=== PATIENT | female | born 1980 | race Caucasian/White ===

== ENCOUNTER 2017-11-14 15:36 | Emergency (ER) | payer OTHER ==
--- NOTE | 2017-11-14 15:55 | PDOC ---
History of Present Illness - History of Present Illness Initial Comments: 11/14/17 16:05 Patient is a 37 year old female, with a significant PMHx of Type 1 diabetes, who presents to the ER s/p dog bite to both hands. Patient states she was handling a clients dog and trying to get the dog back into bed when it bite through her gloves and 2 layers of a blanket. Patient sustained cuts to both hands as well as scratches to the dorsal side of her hand. The deeper cuts are located on the lateral distal portion of her her right fourth and fifth finger. Patient denies experiencing any current numbness or tingling in her hands. Patient states the dog is a poodle mix and weighs approximately 20 lbs. Last blood sugar reading was 119 at 2:36 pm. Patient is up-to-date with her rabies and tetanus shots. She received them both last November. <Lucia Villanueva - Last Filed: 11/14/17 16:05> <Rickey Moyer - Last Filed: 11/14/17 17:16> - General Chief Complaint: Bite Stated Complaint: DOG BITE Time Seen by Provider: 11/14/17 15:51 Past History <Lucia Villanueva - Last Filed: 11/14/17 16:05> - Past Medical History Diabetes: Yes (TYPE I) - Immunization History TDAP Vaccination: Yes (12/12/15) Immunization Up to Date: Yes - Suicide/Smoking/Psychosocial Hx Smoking History: Former smoker Have you smoked in the past 12 months: No If you are a former smoker, when did you quit?: 2009 Hx Alcohol Use: Yes (social) Drug/Substance Use Hx: No Substance Use Type: None <Rickey Moyer - Last Filed: 11/14/17 17:16> - Past Medical History Allergies/Adverse Reactions: Allergies Allergy/AdvReac Type Severity Reaction Status Date / Time lactose AdvReac Mild Verified 11/14/17 16:24 Home Medications: Ambulatory Orders Insulin (Novolog) [Novolog -] 24 units SQ ASDIR PRN 12/14/15 Venlafaxine HCl ER [Effexor Xr -] 150 mg PO DAILY 12/14/15 Amox-Tr/K Cl [Augmentin 875-125mg Tablet -] 1 tab PO BID #14 tablet 11/14/17 Review of Systems - Review of Systems Comments:: 11/14/17 16:05 CONSTITUTIONAL: Absent: fever, no chills, no fatigue EYES: Absent: visual changes ENT: Absent: ear pain, no sore throat CARDIOVASCULAR: Absent: chest pain, no palpitations RESPIRATORY: Absent: cough, no SOB GI: Absent: abdominal pain, no nausea, no vomiting, no constipation, no diarrhea GENITOURINARY: Absent: dysuria, no frequency, no hematuria MUSCULOSKELETAL: Absent: back pain, no arthralgia, no myalgia SKIN: Present: scratches and lacerations to both hands. Deeper cuts on fourth and fifth fingers on right hand. Absent: rash <Lucia Villanueva - Last Filed: 11/14/17 16:05> Medical Decision Making - Medical Decision Making 11/14/17 16:41 Declined test. States there is no chance of . Physical exam: Alert oriented no acute distress cooperative Afebrile, vital signs normal Examination confined to the hands, which reveal multiple puncture wounds secondary to dog bites from a friend's dog, whom she was trying to move to his doggy bed. No deep lacerations appear to be present, and flexion/extension of PIP and DIP joints in all 10 digits seem to be intact and strong against resistance. No demonstrable sensory deficits to the fingers, but there is a complaint of "burning" of the distal phalanx, bilaterally, right fifth finger. There is an abrasion/laceration at the base of the fifth digit laterally on this hand. 11/14/17 16:58 X-ray is negative for foreign body Wounds were thoroughly scrubbed with normal saline, irrigated, and dressed with bacitracin. Augmentin was begun. Instructed to follow-up with plastic surgeon/ hand surgeon in 3-5 days, sooner if there is evidence of infection developing <Rickey Moyer - Last Filed: 11/14/17 17:16> *DC/Admit/Observation/Transfer - Attestations Scribe Attestion: 11/14/17 16:07 Documentation prepared by Lucia Villanueva, acting as medical secretary receptionist for Rickey Castañeda MD. <Lucia Villanueva - Last Filed: 11/14/17 16:05> - Discharge Dispostion Admit: No <Rickey Moyer - Last Filed: 11/14/17 17:16> Diagnosis at time of Disposition: Dog bite of hand Qualifiers: Encounter type: initial encounter Laterality: right Qualified Code(s): S61.451A - Open bite of right hand, initial encounter - Discharge Dispostion Disposition: HOME Condition at time of disposition: Improved - Prescriptions Prescriptions: Amox-Tr/K Cl [Augmentin 875-125mg Tablet -] 1 tab PO BID #14 tablet - Referrals Referrals: Gal Montesinos MD [Staff Physician] - 3 days - Patient Instructions Printed Discharge Instructions: How to Care for a Domestic Animal Bite Additional Instructions: Rest and elevate. Wound care as described. Use the hand as little as possible for the next 2-3 days to minimize the risk of infection If there is any persistent numbness tingling or difficulty bending any of the fingers, you should be rechecked by a hand specialist. You are referred to Dr. Montesinos for this purpose. Also if you develop infection despite the antibiotic treatment, he should see Dr. Montesinos immediately, because hand infections can be devastating if not controlled immediately.
[2017-11-14 16:24] VITALS: BP 127/81; PULSE 76; TEMP 98.1; BMI 26.2
[2017-11-14] MEDS ORDERED: AMOX TR/POT CLAV 875MG/125MG TABLETS (FP) PO ONE (16:57)
[2017-11-14] MEDS ORDERED: AMOX TR/POT CLAV 875MG/125MG TABLETS (FP) ONE (17:07)
== END 2017-11-14 17:18 | disposition home or self-care (01) ==
LOC: FER 15:36
DX: S61.451A Open bite of right hand, initial encounter (principal); E10.9 Type 1 diabetes mellitus without complications; Z87.891 Personal history of nicotine dependence; T14.8XXA Other injury of unspecified body region, initial encounter; W54.0XXA Bitten by dog, initial encounter; Y93.9 Activity, unspecified; Y92.9 Unspecified place or not applicable
CPT/HCPCS: 73130-TC-LT; 73130-TC-RT; 99282-25

== ENCOUNTER 2018-01-15 20:40 | Emergency (ER) | payer OTHER ==
--- NOTE | 2018-01-15 20:55 | PDOC ---
History of Present Illness - General History Source: Patient Exam Limitations: No Limitations - History of Present Illness Initial Comments: 01/15/18 21:05 The patient is a 37 year old female with a significant PMH of type I diabetes who presents to the emergency department with a left arm abrasion and laceration s/p dog bite earlier today. The patient reports being at the dog park and being bitten by another persons dog on her left forearm. She describes her cuts as a superficial cut on the back side of her left arm and a deeper cut on her forearm. She denies any active bleeding. She reports the dog that bit her was fully vaccinated as it is a requirement to play in the park. She reports her Tetanus is up to date. PAST MEDICAL HISTORY: Type I diabetes. PAST SURGICAL HISTORY: no significant history FAMILY HISTORY: no pertinent history SOCIAL HISTORY: Pt lives with family and is employed. MEDICATIONS: reviewed ALLERGIES: Lactose. Review of Systems General: No fevers or chills, no weakness, no weight loss HEENT: No change in vision. No sore throat,. No ear pain CardioVascular: No chest pain or shortness of breath Respiratory:No cough, or wheezing. Gastrointestinal: no nausea, vomitting, diarrhea or constipation, No rectal bleeding Genitourinary: No dysuria, hematuria, or frequency Musculoskeletal: No joint or muscle pain or swelling Neurologic: No headache, vertigo, dizziness or loss of consciousness Psychiatric: nor depression Skin: (+) Superficial cuts to the dorsal and palmar side of forearm. No rashes or easy bruising Endocrine: no increased thirst or abnormal weight change Allergic: no skin or latex allergy All other systems reviewed and normal Exam: GENERAL: The patient is awake, alert, and fully oriented, in no acute distress. HEAD: Normal with no signs of trauma. EYES: Pupils equal, round and reactive to light, extraocular movements intact, sclera anicteric, conjunctiva clear. EXTREMITIES: Normal range of motion, no edema. NEUROLOGICAL: Normal speech, normal gait. PSYCH: Normal mood, normal affect. SKIN: (+) 1 cm superficial abrasion to dorsal side of left arm. (+) 1 cm superficial laceration to the palmar side of the left forearm. <Wade Maldonado - Last Filed: 01/15/18 21:05> - General History Source: Patient Exam Limitations: No Limitations - History of Present Illness Initial Comments: A portion of this note was documented by scribe services under my direction. I have reviewed the details of the note, within reason, and agree with the documentation. The case summary and management plan written by me. Assessment and plan: This is a 37-year-old female who was bit by a dog prior to coming in. The dog was at a dog park and his immunizations are all up-to-date. Patient has a superficial abrasion on the back of her forearm as well as a superficial laceration on the palmar side of the forearm. Both were cleaned and antibiotic ointment and dressing was applied. Patient's tetanus is up-to-date. Patient was started on Augmentin to prevent infection. Patient discharged home and does have a primary care doctor she can follow-up with. 01/16/18 00:09 <Judson Dugan I - Last Filed: 01/16/18 00:10> - General Chief Complaint: Bite Stated Complaint: LFA DOG BITE Time Seen by Provider: 01/15/18 20:45 Past History <Wade Maldonado - Last Filed: 01/15/18 21:05> - Past Medical History COPD: No Diabetes: Yes (TYPE I) Psychiatric Problems: Yes (DEPRESSION) - Immunization History TDAP Vaccination: Yes (12/12/15) Immunization Up to Date: Yes - Suicide/Smoking/Psychosocial Hx Smoking History: Former smoker Have you smoked in the past 12 months: No If you are a former smoker, when did you quit?: 2009 Hx Alcohol Use: Yes (social) Drug/Substance Use Hx: No Substance Use Type: None <Judson Dugan I - Last Filed: 01/16/18 00:10> - Past Medical History Allergies/Adverse Reactions: Allergies Allergy/AdvReac Type Severity Reaction Status Date / Time lactose AdvReac Mild Verified 01/15/18 20:51 Home Medications: Ambulatory Orders Insulin (Novolog) [Novolog -] 24 units SQ ASDIR PRN 12/14/15 Venlafaxine HCl ER [Effexor Xr -] 150 mg PO DAILY 12/14/15 Amoxicillin/Potassium Clav [Augmentin 875-125 Tablet] 1 each PO BID #14 tablet 01/15/18 Cetirizine HCl [Zyrtec -] 10 mg PO DAILY 01/15/18 *Physical Exam - Vital Signs Last Vital Signs Temp Pulse Resp BP Pulse Ox 98.4 F 74 18 124/89 99 01/15/18 20:40 01/15/18 20:40 01/15/18 20:40 01/15/18 20:40 01/15/18 20:40 <Wade Maldonado - Last Filed: 01/15/18 21:05> *DC/Admit/Observation/Transfer - Attestations Scribe Attestion: 01/15/18 21:06 Documentation prepared by Wade Maldonado, acting as district medical examiner for Judson Dugan MD. <Wade Maldonado - Last Filed: 01/15/18 21:05> - Discharge Dispostion Admit: No <Judson Dugan I - Last Filed: 01/16/18 00:10> Diagnosis at time of Disposition: Dog bite of left forearm - Discharge Dispostion Disposition: HOME Condition at time of disposition: Stable - Prescriptions Prescriptions: Amoxicillin/Potassium Clav [Augmentin 875-125 Tablet] 1 each PO BID #14 tablet - Patient Instructions Printed Discharge Instructions: DI for Animal Bites Additional Instructions: Clean the laceration once a day reapply some antibiotic ointment and a dressing until the laceration has scabbed in. Take Augmentin one tablet twice a day with food don't take on an empty stomach. Return to the emergency department immediately with ANY new, persistent or worsening symptoms. Continue any medications as previously prescribed by your physician. You should follow up with your primary doctor as soon as possible regarding today's emergency department visit. . Please make sure your doctor reviews the results of your emergency evaluation. Thank you for coming to the Emergency Department today for your care. It was a pleasure to see you today. Please note that your evaluation is INCOMPLETE until you follow-up with your doctor.
[2018-01-15 20:57] VITALS: BP 124/89; PULSE 74; TEMP 98.4; BMI 23.0
[2018-01-15] MEDS ORDERED: AMOX TR/POT CLAV 875MG/125MG TABLETS (FP) PO ONE (20:58)
[2018-01-15] MEDS ORDERED: AMOX TR/POT CLAV 875MG/125MG TABLETS (FP) ONE (21:08)
== END 2018-01-15 21:20 | disposition home or self-care (01) ==
LOC: FER 20:40
DX: S51.852A Open bite of left forearm, initial encounter (principal); W54.0XXA Bitten by dog, initial encounter; Y93.9 Activity, unspecified; Y92.9 Unspecified place or not applicable; E11.9 Type 2 diabetes mellitus without complications
CPT/HCPCS: 99283-25

== ENCOUNTER 2022-08-28 16:45 | Emergency (ER) | payer OTHER ==
[2022-08-28 16:55] VITALS: BP 144/94; PULSE 103; RESP 18; TEMP 98; BMI 24.4
== END 2022-08-28 18:52 | disposition home or self-care (01) ==
LOC: JERFT 16:45
DX: S61.452A Open bite of left hand, initial encounter (principal); W55.01XA Bitten by cat, initial encounter
CPT/HCPCS: 99283-25